=== PATIENT | female | born 1990 | race American Indian/Alaskan Native ===

== ENCOUNTER 2018-07-09 11:14 | Outpatient (CLI) | payer BC ==
--- NOTE | 2018-07-09 12:25 | Ultrasound Report ---
RIGHT BREAST ULTRASOUND: 07/09/18 11:14:00 CLINICAL: 27 year-old with a palpable breast mass which she has had for several years. She is planning to have breast augmentation. COMPARISON: None. FINDINGS: Ultrasound of the right breast demonstrated a solid heterogeneous hypoechoic palpable mass at 9 o'clock 4 cm from the nipple. It measures 3.7 x 1.6 x 2.9 cm.It has a lobular shape. IMPRESSION: A solid 3.7 cm right breast mass at 9 o'clock 4 cm from the nipple. BI-RADS 4A--Mildly Suspicious RECOMMENDATION: Ultrasound guided needle core biopsy of the right breast mass to confirm benignity prior to surgical excision and breast augmentation.
== END 2018-07-09 11:15 | disposition home or self-care (01) ==
LOC: SPVWC 11:14
PROVIDERS: ATTEND Internal Medicine
DX: N63.13 Unspecified lump in the right breast, lower outer quadrant (principal)